=== PATIENT | male | born 1985 | race Caucasian/White ===

== ENCOUNTER 2017-01-10 09:32 | Emergency (ER) | payer OTHER ==
[~2017-01-10] VITALS: Ht 172.7 cm; Wt 96.6 kg
[~2017-01-10 09:32] MED LIST: FLEXERIL10 MG PO; MOTRIN600 MG PO
[2017-01-10] MEDS ORDERED: FLEXERIL10 MG PO (12:06)
[2017-01-10] MEDS ORDERED: NORCO 5/3251 TABLET PO (12:06)
[2017-01-10] MEDS ORDERED: NAPROSYN500 MG PO (12:06)
[2017-01-10 12:23] VITALS: BP 123/76
== END 2017-01-10 12:25 | disposition home or self-care (01) ==
LOC: EME 09:32
DX: S20.212A Contusion of left front wall of thorax, initial encounter (principal); S70.02XA Contusion of left hip, initial encounter; S70.12XA Contusion of left thigh, initial encounter; M54.5 Low back pain; V20.4XXA Motorcycle driver injured in collision with pedestrian or animal in traffic accident, initial encounter; Y92.410 Unspecified street and highway as the place of occurrence of the external cause; F17.200 Nicotine dependence, unspecified, uncomplicated
CPT/HCPCS: 71020; 73502; 99281; 99284